=== PATIENT | male | born 1960 | race Caucasian/White ===

== ENCOUNTER 2018-10-28 12:39 | Emergency (ER) | payer BC, OTHER ==
[~2018-10-28] VITALS: Ht 175.3 cm; Wt 78.9 kg
[2018-10-28 12:40] VITALS: BP_SYST 153
[2018-10-28] MEDS ORDERED: TETRACAINE HCL 0.5% OPHTHALMIC DROPS 15 ML OP ONE ×2 (12:40→13:00)
[2018-10-28] MEDS ORDERED: DIPH-TET-PERTUS Vaccine 0.5 ML VIAL (ADACEL) I.M. ONE (13:30)
[2018-10-28] MEDS ORDERED: KETOROLAC TROMETHAMINE 30 MG VIAL IM ONE (13:30)
[2018-10-28 14:21] VITALS: BP_SYST 153
== END 2018-10-28 14:21 | disposition home or self-care (01) ==
LOC: SED 12:39
DX: S05.01XA Injury of conjunctiva and corneal abrasion without foreign body, right eye, initial encounter (principal); H10.211 Acute toxic conjunctivitis, right eye; E78.00 Pure hypercholesterolemia, unspecified; X58.XXXA Exposure to other specified factors, initial encounter; Y93.89 Activity, other specified; Y92.89 Other specified places as the place of occurrence of the external cause; Y99.8 Other external cause status
CPT/HCPCS: 90471; 90715; 96372; 99283; J1885